=== PATIENT | male | born 1955 | race Hispanic/Latino ===

== ENCOUNTER → 2017-12-03 | Outpatient (RCR) | payer OTHER | LOC: PT 11-30 10:23 | PROVIDERS: ATTEND Specialist | DX: M25.562 Pain in left knee (principal); M25.662 Stiffness of left knee, not elsewhere classified; M62.81 Muscle weakness (generalized) | CPT/HCPCS: 97010 ×2; 97110; 97161; G8978; G8979 ==

== ENCOUNTER 2017-12-28 10:00 | Outpatient (RCR) | payer OTHER | END 2018-01-03 | LOC: PT 10:00 | PROVIDERS: ATTEND Specialist | DX: M25.562 Pain in left knee (principal); M25.662 Stiffness of left knee, not elsewhere classified; R26.2 Difficulty in walking, not elsewhere classified; M62.81 Muscle weakness (generalized) | CPT/HCPCS: 97010 ×4; 97110 ×7; G8979; G8980 ==